=== PATIENT | male | born 1990 | race Two or more races ===

== ENCOUNTER 2019-03-29 17:50 | Emergency (ER) | payer SELFPAY ==
[~2019-03-29] VITALS: Ht 165.1 cm; Wt 68.0 kg
[2019-03-29 18:11] VITALS: BP 139/92
== END 2019-03-29 21:30 | disposition left against medical advice (07) ==
LOC: ER 17:50
DX: Z53.21 Procedure and treatment not carried out due to patient leaving prior to being seen by health care provider (principal)